=== PATIENT | female | born 2000 | race Caucasian/White ===

== ENCOUNTER 2023-02-25 09:29 | Outpatient (AMB) | payer OTHER, SELFPAY ==
--- NOTE | 2023-02-25 12:01 | MHC.OFFWIV ---
Intake Vital Signs 02/25/23 12:17 Height 5 ft 4 in Weight 135 lb BMI 23.2 BP 90/68 Blood Pressure Location Rt brachial Position Sitting Pulse 128 H Pulse Source Pulse Oximeter Temp 103 F H Temp Source Oral Pulse Oximetry (%) 97 Oxygen Delivery Method Room Air Intake Visit Reasons: INTERLACER/fever and cough([phone]) Intake Note: Pt is here today c/o cough,fever and headache x2days Allergies No Known Allergies Allergy (Verified 02/25/23 12:02) Do you need a note to return to daycare/school/sports/work: Yes HPI HPI Comments History of Present Illness Details This is a 22-year-old female who is a college student studying criminal justice presenting for evaluation of a cough and fever that she has had since yesterday. Patient also reports body aches, headache and general malaise. Patient has been taking DayQuil and NyQuil for her symptoms. Patient is noted to be febrile and tachycardic upon presentation. Review of Systems Const All systems reviewed & are unremarkable except as noted in HPI and below Denies chills, Reports fatigue, Reports fever(s), Reports headache(s) and Reports malaise Eyes Reports no additional complaints ENT Reports no additional complaints and Reports headache(s) Card Reports no additional complaints and Denies dyspnea Resp Reports cough and Denies dyspnea Skin/Breast Reports system reviewed and no additional complaints, except as documented Neuro Reports headache(s) Endo Reports fatigue Physical Exam Vital Signs: Last Vital Signs Temp 103 F H 02/25/23 12:17 Pulse 128 H 02/25/23 12:17 BP 90/68 02/25/23 12:17 Pulse Ox 97 02/25/23 12:17 Oxygen Delivery Method Room Air 02/25/23 12:17 BMI result Body Mass Index 23.2 Const General: cooperative, comfortable, awake and tired appearing; No diaphoretic Nutritional Appearance: average body habitus Orientation/consciousness: patient oriented x3 Limitations: no limitations HEENT Head: Yes normal to inspection Ears: hearing grossly normal bilaterally, external ears normal, TM's normal bilaterally and EAC's normal General nose exam: Normal external nose present Face and sinus: Yes normal facial exam and No sinus tenderness Mouth: Normal oral and palatal mucosa present Teeth and gingiva: dentition normal Throat: Yes posterior oropharynx normal and Yes postnasal drainage Eyes Conjunctivae: conjunctival abnormal (Injected bilaterally) EOM: EOMs intact bilaterally Neck Lymphatic: no lymphadenopathy noted Resp Effort & Inspection: normal respiratory effort, no audible wheezes, Actively coughing, no respiratory distress and not tachypneic Auscultation: wheezes (minimal bibasilar, R > L) Cardio Rate: tachycardic Rhythm: regular rhythm GI Palpation (GI): Soft to palpation, nontender and no guarding Skin General skin exam: no rashes or lesions noted Neuro General: patient oriented x3 Psych Appearance: grossly normal Mental Status: mental status grossly normal Insight: Good insight present (Psych) Judgement: Good judgement present (Psych) Results Reviewed Results Reviewed: CXR reviewed with patient. Assessment & Plan Assessment & Plan (1) Cough with fever: Code(s): R05.9 - Cough, unspecified; R50.9 - Fever, unspecified Plan: SARS panel is initiate and pending. Chest x-ray is reviewed with patient. Given the timing of the s holiday and the pending viral panel, patient will be prescribed Tamiflu Orders: Orders XR chest 2V Today R05.9 - Cough, unspecified, R50.9 - Fever, unspecified SARS-CoV2/FLU/RSV Today R05.9 - Cough, unspecified, R50.9 - Fever, unspecified Medications: New oseltamivir 75 mg PO BID 5 days 10 caps 0RF oseltamivir 75 mg PO BID 5 days 10 caps 0RF Coding Level of Care Code New Pt Level 4 (18800) Diagnoses Cough with fever R05.9; R50.9 Time Spent (min) 35
[2023-02-25 12:17] VITALS: BP 90/68; PULSE 128; TEMP 39.4; O2SAT 97; BMI 23.2
== END 2023-02-25 13:30 | disposition home or self-care (01) ==
PROVIDERS: Visit Provider Physician Assistant
DX: R05.9 Cough, unspecified (principal); R50.9 Fever, unspecified
CPT/HCPCS: 99051; 99204

== ENCOUNTER 2023-02-25 13:02 | Outpatient (REF) | payer OTHER, SELFPAY ==
--- NOTE | ~2023-02-25 | XR_ITS ---
EXAMINATION: XR CHEST CLINICAL INFORMATION: Cough. COMPARISON: None available. TECHNIQUE: Frontal and lateral views of the chest were obtained. FINDINGS: The heart, great vessels, pulmonary vasculature and mediastinum are normal. The lungs show no focal infiltrate, effusion or pneumothorax. There is no acute osseous abnormality. XR/XR chest 2V IMPRESSION: No active cardiopulmonary disease.
== END 2023-02-25 13:03 | disposition home or self-care (01) ==
LOC: HO.HMGCX 13:02
PROVIDERS: Visit Provider Physician Assistant
DX: R05.9 Cough, unspecified (principal); R50.9 Fever, unspecified
CPT/HCPCS: 71046

== ENCOUNTER 2023-02-25 13:12 | Outpatient (REF) | payer OTHER, SELFPAY ==
[2023-02-25 14:22] LABS: Influenza A PCR POSITIVE (Negative); Influenza B PCR NEGATIVE (Negative); Resp Syncy Virus RNA Qual PCR NEGATIVE (Negative); SARS COV2 PCR INHOUSE NEGATIVE (Negative)
== END 2023-02-25 13:13 | disposition home or self-care (01) ==
LOC: HO.LAB 13:12
PROVIDERS: Visit Provider Physician Assistant
DX: Z11.52 Encounter for screening for COVID-19 (principal); R05.9 Cough, unspecified; R50.9 Fever, unspecified
CPT/HCPCS: 0241U